=== PATIENT | male | born 1960 | race Caucasian/White ===

== ENCOUNTER 2016-11-29 07:30 | Emergency (ER) | payer MEDICAID ==
[~2016-11-29] VITALS: Ht 175.3 cm; Wt 63.5 kg
[2016-11-29 08:43] VITALS: BP 144/100
[2016-11-29] MEDS ORDERED: ONDANSETRON HCL 4 MG/2 ML VIAL IM ONE (08:45)
[2016-11-29] MEDS ORDERED: HYDROmorphone HCL 2 MG/ML VL IM ONE (08:45)
== END 2016-11-29 09:29 | disposition home or self-care (01) ==
LOC: ER 07:30
DX: S22.43XD Multiple fractures of ribs, bilateral, subsequent encounter for fracture with routine healing (principal); S39.92XD Unspecified injury of lower back, subsequent encounter; F17.210 Nicotine dependence, cigarettes, uncomplicated; X58.XXXD Exposure to other specified factors, subsequent encounter
CPT/HCPCS: 96372; 99284; J1170; J2405